=== PATIENT | male | born 1940 | race Caucasian/White ===

== ENCOUNTER 2017-08-20 07:50 | Emergency (ER) | payer MEDICARE, BC ==
[2017-08-20 08:15] VITALS: BP 209/109
--- NOTE | 2017-08-20 08:37 | UC ---
Ear Complaint HPI - HPI Summary HPI Summary: DISCOMFORT RIGHT EAR X 7 DAYS + PAIN AND PRESSURE RIGHT SIDE OF HIS FACE CANNOT HEAR FORM HIS RIGHT EYE + NASAL CONGESTION, SINUS PAIN AND PRESSURE, NO FEVER, NO CHILLS, NO COUGH - History of Current Complaint Chief Complaint: UCRespiratory Stated Complaint: SINUS Time Seen by Provider: 08/20/17 08:05 Hx Obtained From: Patient Onset/Duration: Gradual Onset, Lasting Days - 7, Lasting Weeks Severity Initially: Moderate Severity Currently: Moderate Pain Intensity: 0 Aggravating Factors: Nothing Alleviating Factors: Nothing Associated Signs/Symptoms: Positive: URI Symptoms. Negative: Foreign Body Sensation, Swelling @ - Allergies/Home Medications Allergies/Adverse Reactions: Allergies Allergy/AdvReac Type Severity Reaction Status Date / Time haloperidol Allergy Unknown Verified 08/20/17 08:04 Reaction Details Iodine and Iodide Containing Allergy Hives Verified 08/20/17 08:04 Produc iodixanol Allergy Hives Verified 08/20/17 08:04 Home Medications: Home Medications Lactobacillus Acidophilus [Probiotic] 1 each PO DAILY 08/20/17 [History Confirmed 08/20/17] PMH/Surg Hx/FS Hx/Imm Hx Cardiovascular History: Hypertension GI/ History: Kidney Stones - Surgical History Surgical History: None Surgery Procedure, Year, and Place: NO ABDOMINAL SURGERIES - Family History Known Family History: Positive: Hypertension - Social History Alcohol Use: None Substance Use Type: None Smoking Status (MU): Current Every Day Smoker Type: Pipe Have You Smoked in the Last Year: Yes When Did the Patient Quit Smoking/Using Tobacco: PIPE 3-4X/DAY Review of Systems Constitutional: Negative Skin: Negative Eyes: Negative ENT: Sinus Congestion Respiratory: Negative Cardiovascular: Negative Is Patient Immunocompromised?: No All Other Systems Reviewed And Are Negative: Yes Physical Exam Triage Information Reviewed: Yes Appearance: Well-Appearing, No Pain Distress, Well-Nourished Vital Signs: Initial Vital Signs Temp 99.1 F 08/20/17 08:02 Pulse 87 08/20/17 08:02 Resp 20 08/20/17 08:02 BP 209/109 08/20/17 08:02 Pulse Ox 100 08/20/17 08:02 Vital Signs Reviewed: Yes Eyes: Positive: Conjunctiva Clear ENT: Positive: Normal ENT inspection, Hearing grossly normal, Pharynx normal, Nasal congestion, TM bulging - RIGHT TM, Sinus tenderness. Negative: TM dull, TM red Neck: Positive: Supple, Nontender, No Lymphadenopathy Respiratory: Positive: Chest non-tender, Lungs clear, Normal breath sounds Cardiovascular: Positive: RRR, No Murmur, Pulses Normal Skin Exam: Normal Ear Complaint Course/Dx - Course Course Of Treatment: CONT. CURRENT HTN MEDS. FOLLOW UP WITH YOUR PCP IN 5 DAYS - Differential Dx/Diagnosis Provider Diagnoses: SINUSITIS. ELEVATED BP Discharge - Sign-Out/Discharge Documenting (check all that apply): Discharge - Discharge Plan Condition: Stable Disposition: HOME Prescriptions: Amoxicillin/Clavulanate TAB* [Augmentin TAB 875*] 875 mg PO BID #20 tab Fluticasone NASAL SPRAY 50MCG* [Flonase NASAL SPRAY 50MCG*] 2 spray BOTH NARES DAILY #1 btl Patient Education Materials: Sinusitis (ED), Hypertension in the Older Adult ( ED) Referrals: Fidelia GARCIA,Leola [Primary Care Provider] - If Needed Additional Instructions: PLEASE STOP ALL OTC FOR COLD SYMPTOMS - Billing Disposition and Condition Condition: STABLE Disposition: HOME
== END 2017-08-20 08:37 | disposition home or self-care (01) ==
LOC: UCCORT 07:50
DX: J32.9 Chronic sinusitis, unspecified (principal); R03.0 Elevated blood-pressure reading, without diagnosis of hypertension; Z88.8 Allergy status to other drugs, medicaments and biological substances; Z91.041 Radiographic dye allergy status; I10 Essential (primary) hypertension; F17.210 Nicotine dependence, cigarettes, uncomplicated
CPT/HCPCS: 99202; G0463